=== PATIENT | female | born 1970 ===

== ENCOUNTER 2017-08-20 11:09 | Emergency (ER) | payer OTHER ==
[2017-08-20 11:09] VITALS: BMI 29.1
[2017-08-20 11:34] VITALS: BP 115/74; PULSE 88; RESP 15; TEMP 98.7; O2SAT 100
== END 2017-08-20 12:40 | disposition left against medical advice (07) ==
LOC: C.ER 11:09
DX: Z02.89 Encounter for other administrative examinations (principal); R51 Headache